=== PATIENT | female | born 1960 | race Caucasian/White ===

== ENCOUNTER 2021-07-03 19:34 | Emergency (ER) | payer OTHER ==
--- NOTE | 2021-07-03 20:14 | ED Physician Documentation ---
PD HPI ABD PAIN - Stated complaint Stated Complaint: PX NEAR [place] - Chief complaint Chief Complaint: Abd Pain - History obtained from History obtained from: Patient - History of Present Illness Timing - onset: Enter time (16:00), Today Timing - details: Abrupt onset, Constant, Waxing and waning Pain level now: 10 Quality: Pain Location: Periumbilical Improved by: Other (nothing) Worsened by: Palpation Associated symptoms: Nausea, Vomiting. No: Fever, Diarrhea, Constipation Similar symptoms before: No diagnosis (recollects having one similar episode decades ago) Recently seen: Not recently seen - Additional information Additional information: c/o sudden onset periumbilical pain at 4 PM today while at home during light activity. Pain waxes and wanes but is severe and associated with nausea and vomiting. Review of Systems Constitutional: denies: Fever Cardiac: reports: Reviewed and negative Respiratory: reports: Reviewed and negative GI: reports: Abdominal Pain, Nausea, Vomiting. denies: Constipation, Diarrhea, Hematemesis, Bloody / black stool Musculoskeletal: reports: Reviewed and negative PD PAST MEDICAL HISTORY - Past Medical History Past Medical History: Yes Other Past Medical History: remy-danlos syndrome - Allergies Allergies/Adverse Reactions: Allergies Allergy/AdvReac Type Severity Reaction Status Date / Time Penicillins Allergy Anaphylaxis Verified 07/03/21 19:41 - Living Situation Living Situation: reports: With spouse/s.o. Living Arrangement: reports: At home - Social History Does the pt drink ETOH?: No PD ED PE NORMAL - Vitals Vital signs reviewed: Yes - General General: Alert and oriented X 3, Well developed/nourished, Other (obvious severe painful distress, vomiting at times during H+P) - Neck Neck: Supple, no meningeal sign - Cardiac Cardiac: RRR, No murmur - Respiratory Respiratory: No respiratory distress, Clear bilaterally - Abdomen Abdomen: Normal bowel sounds, Soft, Non tender, Non distended - Derm Derm: Normal color, Warm and dry - Neuro Neuro: Alert and oriented X 3 Results - Vitals Vitals: Oxygen O2 Source Room air - Labs Labs: Laboratory Tests 07/03/21 07/03/21 07/03/21 20:51 20:51 23:04 WBC 15.0 H RBC 5.32 Hgb 15.9 Hct 47.3 H MCV 88.9 MCH 29.9 MCHC 33.6 RDW 12.9 Plt Count 268 MPV 9.6 Neut # (Auto) 11.9 H Lymph # (Auto) 2.0 [place] # (Auto) 0.8 Eos # (Auto) 0.2 Baso # (Auto) 0.1 Absolute Nucleated RBC 0.00 Nucleated RBC % 0.0 Sodium 141 Potassium 3.2 L Chloride 102 Carbon Dioxide 26 Anion Gap 13.0 BUN 8 Creatinine 0.9 Estimated GFR (MDRD) 63 L Glucose 128 H Calcium 9.7 Total Bilirubin 0.6 AST 26 ALT 26 Alkaline Phosphatase 47 Total Protein 7.9 Albumin 4.5 Globulin 3.4 Albumin/Globulin Ratio 1.3 Lipase 26 Urine Color YELLOW Urine Clarity CLEAR Urine pH 7.5 Ur Specific [place] 1.020 Urine Protein NEGATIVE Urine Glucose (UA) NEGATIVE Urine Ketones TRACE Urine Occult Blood NEGATIVE Urine Nitrite NEGATIVE Urine Bilirubin NEGATIVE Urine Urobilinogen 0.2 (NORMAL) Ur Leukocyte Esterase NEGATIVE Ur Microscopic Review NOT INDICATED Urine Culture Comments NOT INDICATED - Rads (name of study) CT A/P without contrast Radiology: Prelim report reviewed, See rad report PD MEDICAL DECISION MAKING - ED course Complexity details: reviewed results, re-evaluated patient, considered differential, d/w patient, d/w family ED course: patient says she is allergic to almost all pain medications (per patient). She is in obvious painful distress on initial exam and I explain that I would like to offer pain medication to make her comfortable until test results available. After further discussion, we agreed on toradol and then we can discuss other, stronger options if toradol is ineffective. In addition, she is given IV fluids and zofran. I recommended CT A/P with IV contrast which she is agreeable to except that she insists she is allergic to IV contrast (when I seek clarification, patients says patient is allergic to palladium and other heavy metals. While IV contrast would likely enhance ability to interpret CT, will not give with contrast due to patients insistence she is allergic. PO contrast not given, as patient continues to have active nausea, vomiting during this discussion). After tests resulted, patient reevaluated and she is lying on stretcher awake, alert, and in NAD. smiles, reports complete resolution of her symptoms. We discussed results; CT A/P has questionable dilated small bowel loops, thus possible early/partial SBO but not definitively demonstrated nor ruled out on these images. She is mildly hypokalemic but this is known (and for which she takes PO potassium). she has mild leukocytosis (WBC 15). given her complete resolution of symptoms without narcotic analgesics, and lack of concerning findings on CT and blood tests, she is appropriate for discharge with instruction to return if worse, follow up with PMD. In addition to partial/early SBO, also considered on differential are biliary colic/dysmotility, PUD/gastritis. pancreatitis unlikely given normal lipase and no evidence of inflammation on CT. Vascular crisis such as dissection or intestinal ischemia/infarction also possible but unlikely given lack of supportive findings on CT Departure - Departure Disposition: 01 Home, Self Care Clinical Impression: Abdominal pain Qualifiers: Abdominal location: periumbilical Qualified Code(s): R10.33 - Periumbilical pain Condition: Good Instructions: ED Abdominal Pain Unkn Cause Discharge Date/Time: 07/03/21 23:45
[2021-07-03] MEDS ORDERED: KETOROLAC 30 MG/ML VIAL IVP STA (20:35)
[2021-07-03] MEDS ORDERED: SODIUM CHLORIDE 0.9% 1,000 ML IV STA (20:35)
[2021-07-03] MEDS ORDERED: ONDANSETRON 4 MG/2 ML VIAL IVP STA (20:35)
[2021-07-03 21:00] LABS: BASOPHILS # (AUTO) 0.1 10^3/uL (0.0-0.1); BASOPHILS % (AUTO) 0.8 %; EOSINOPHILS # (AUTO) 0.2 10^3/uL (0.0-0.7); EOSINOPHILS % (AUTO) 1.6 %; HCT - HEMATOCRIT 47.3 % (37.0-47.0); HGB - HEMOGLOBIN 15.9 g/dL (12.0-16.0); MEAN CORPUSCULAR HEMOGLOBIN 29.9 pg (27.0-31.0); MEAN CORPUSCULAR HGB CONC 33.6 g/dL (32.0-36.0); MEAN CORPUSCULAR VOLUME 88.9 fL (81.0-99.0); MEAN PLATELET VOLUME 9.6 fL (7.9-10.8); MONOCYTES # (AUTO) 0.8 10^3/uL (0.0-1.0); MONOCYTES % (AUTO) 5.3 %; NEUTROPHILS # (AUTO) 11.9 10^3/uL (1.5-6.6); PLT - PLATELET COUNT 268 10^3/uL (130-450); RED BLOOD COUNT 5.32 10^6/uL (4.20-5.40); RED CELL DISTRIBUTION WIDTH 12.9 % (12.0-15.0)
[2021-07-03 21:13] LABS: ALBUMIN 4.5 g/dL (3.2-5.5); ALBUMIN/GLOBULIN RATIO 1.3 (1.0-2.2); BILIRUBIN,TOTAL 0.6 mg/dL (0.2-1.0); CALCIUM 9.7 mg/dL (8.5-10.3); CREATININE 0.9 mg/dL (0.4-1.0); POTASSIUM 3.2 mmol/L (3.5-5.0); TOTAL PROTEIN 7.9 g/dL (6.7-8.2)
--- NOTE | 2021-07-03 21:51 | CT Report ---
PROCEDURE: Abdomen/Pelvis WO INDICATIONS: abdominal pain TECHNIQUE: Noncontrast 5 mm thick sections acquired from the diaphragms to the symphysis. 5 mm coronal and sagi ttal reformats were then performed. For radiation dose reduction, the following was used: automated exposure control, adjustment of mA and/or kV according to patient size. COMPARISON: None. FINDINGS: Image quality: Limited by absence of both oral and intravenous contrast. ABDOMEN: Lung bases: Lung bases are clear. Heart size is normal. Solid organs: Liver and spleen are normal in size. Gallbladder appears normal where well seen Panc reas is normal in contours. No adrenal nodules. Kidneys are normal in size, without hydronephrosis or nephrolithiasis. Peritoneum and bowel: Unenhanced bowel loops demonstrate normal wall thickness and the caliber of th e small bowel through the abdomen and portions of the pelvis appear just below or at the upper limits of normal.. No free fluid or air. Nodes and vessels: No retroperitoneal or mesenteric adenopathy by size criteria. Aorta and inferior vena cava are normal in caliber. Miscellaneous: No ventral hernias. PELVIS: Genitourinary: Bladder wall thickness is normal. Miscellaneous: No inguinal hernias or adenopathy. Bones: No suspicious bony lesions. No vertebral body compression fractures. IMPRESSION: Quality of visualization is significantly limited by the absence of both oral and intravenous contras t. There appears to be mild prominence of the small bowel loops through the abdomen and pelvis. Etiol ogy is uncertain. No free air seen. No abscess identified. Continued clinical assessment is recommend ed. Follow-up CT scanning of the abdomen/pelvis with oral and intravenous contrast may become necessa ry. Reviewed by: Ismael Tavarez MD on 07/03/2021 9:50 PM PDT Approved by: Ismael Tavarez MD on 07/03/2021 9:50 PM PDT Station ID: [id number]
[2021-07-03 23:13] LABS: BILIRUBIN,URINE NEGATIVE (NEGATIVE); GLUCOSE, URINE (UA) NEGATIVE (NEGATIVE); KETONES,URINE (UA) TRACE mg/dL (NEGATIVE); LEUKOCYTE ESTERASE, URINE NEGATIVE (NEGATIVE); NITRITE,URINE NEGATIVE (NEGATIVE); OCCULT BLOOD,URINE NEGATIVE (NEGATIVE); PH,URINE 7.5 PH (5.0-7.5); PROTEIN,URINE NEGATIVE (NEGATIVE); UROBILINOGEN,URINE 0.2 (NORMAL) E.U./dL (NORMAL)
[2021-07-03 23:16] LABS: CLARITY,URINE CLEAR (CLEAR)
[2021-07-03 23:45] VITALS: BP 129/82
== END 2021-07-03 23:45 | disposition home or self-care (01) ==
LOC: ED 19:34
DX: R10.33 Periumbilical pain (principal)
CPT/HCPCS: 36415; 80053; 81001; 81003; 83690; 85025; 87086; 96374; 96375; 99284